=== PATIENT | male | born 1965 | race Caucasian/White ===

== ENCOUNTER → 2016-10-31 | Outpatient (CLI) | payer BC ==
[~2016-10-31] MED LIST: GLIPIZIDE XL2.5 MG PO; METFORMIN HCL500 M1 PO; OMEPRAZOLE40 M1 PO; PHENERGAN25 M1 PO
--- NOTE | ~2016-10-31 | CR63 ---
[facility] A Service of [facility] & [facility] RADIOLOGY TEXT RESULTS PATIENT: BRAD ARMENDARIZ LOCATION: [facility] : 61 UNIT #: [id number] AGE: [address]: Allie Wu MD SEX: M ORDER DR: [id number] [facility] [address]. [place], [place] [address] [id number] O MR#: [id number] Acc #: [id number] NAME: BRAD ARMENDARIZ : 1965 SEX: M STUDY DATE/TIME: 10/31/2016 12:30 UNIT: [facility] ROOM: STUDY DESCRIPTION: CR Chest 2 View Attending Physician: Allie Wu M.D. Referring Physician: Allie Wu M.D. Ordering Physician: Allie Wu M.D. Primary Care Physician: Allie Wu M.D. MEDICAL IMAGING REPORT This report is preliminary unless electronic signature is present EXAM Two-view chest 10/31/2016 HISTORY 51-year-old male with shortness of breath and unexplained weight loss since May 2016. COMPARISON STUDIES None. FINDINGS 2 views of the chest demonstrate clear lungs. No pleural effusion or pneumothorax. Heart size and mediastinum are normal. Pulmonary vasculature normal. IMPRESSION No acute cardiopulmonary findings. Dictated by... Lorne Gonzaelz M.D. THIS IS AN ELECTRONICALLY VERIFIED REPORT Lorne Gonzalez M.D. at 11/01/2016 1:51 PM PREM/saige TD: 10/31/2016 18:28 JOB #: [id number] MEDICAL IMAGING REPORT Page 1 of 1 COPY
== END | disposition home or self-care (01) ==
LOC: CRAD 11:51
DX: R63.4 Abnormal weight loss (principal)
CPT/HCPCS: 71020

== ENCOUNTER → 2016-11-06 | Outpatient (CLI) | payer BC ==
--- NOTE | ~2016-11-06 | CT2 ---
[facility] A Service of [facility] & [facility] RADIOLOGY TEXT RESULTS PATIENT: BRAD ARMENDARIZ [facility] : 61 UNIT #: [id number] AGE: [address]: Allie Wu MD SEX: M ORDER DR: [id number] [facility] [address]. [place], [place] [address] [id number] O MR#: [id number] Acc #: [id number] NAME: BRAD ARMENDARIZ : 1965 SEX: M STUDY DATE/TIME: 11/06/2016 14:20 [facility] ROOM: STUDY DESCRIPTION: CT Abd and Pelv W Cont Attending Physician: Allie Wu M.D. Referring Physician: Allie Wu M.D. Ordering Physician: Allie Wu M.D. Primary Care Physician: Allie Wu M.D. MEDICAL IMAGING REPORT This report is preliminary unless electronic signature is present EXAM CT of the abdomen and pelvis with contrast INDICATION Vomiting off and on for 6 months as well as 50 pounds weight loss over [address] images were obtained from the dome of the diaphragm through the symphysis pubis following administration of oral and intravenous contrast material. This CT exam was performed with one or more of the following radiation dose reduction techniques: automatic control, adjustment of mA and/or kV according to patient size, and iterative reconstruction. FINDINGS Images through the lung bases are clear. This patient has massive distension of the stomach. No oral contrast material has passed into the bowel, findings are characteristic of gastric outlet obstruction. Exact etiology is uncertain. The possibility that there is a mass lesion involving the duodenum is not excluded. Patient does have dilatation of the common bile duct measuring up to 7 mm although there is no pancreatic ductal dilatation. Inspissated material is identified within the duodenum and extending up into the common bile duct and patient is noted to have pneumobilia. Some of the appearance may be related to duodenal diverticulum, but I think certainly the appearance is worrisome again for underlying mass lesion given degree of dilatation, adrenal glands appear unremarkable as is the spleen, pancreas is within normal limits, while patient has pneumobilia. No lesions are identified within the liver itself, other than some focal fatty infiltration noted at the falciform ligament. I do not see any adenopathy within the abdomen. Prostate gland and urinary bladder appear normal. There is no evidence of mechanical bowel obstruction although again patient does have a gastric STS. [facility] A Service of [facility] RADIOLOGY TEXT RESULTS PATIENT: BRAD ARMENDARIZ LOCATION: [facility] : 61 UNIT #: [id number] AGE: [address]: Allie Wu MD SEX: M ORDER DR: outlet obstruction. I do not see any free fluid or adenopathy within the abdomen. Review of bony windows does not demonstrate any aggressive osseous abnormalities. IMPRESSION 1. Massive distension of the patient's stomach. No oral contrast material has passed from the stomach into the small bowel. Findings are characteristic of significant gastric outlet obstruction. Point of obstruction is favored to be just distal to the pylorus. This area does appear thick-walled with associated periduodenal soft tissue stranding, and I think given degree of obstruction, as well as apparent luminal narrowing, the findings are worrisome for malignancy. Inflammation would also be in the differential. There is potentially also a duodenal diverticulum within this area which contains fluid and debris. Additional debris is seen tracking up through the patient's dilated common bile duct and into the biliary tree. Pneumobilia is noted. Given degree of obstruction and gastric dilatation patient is certainly at risk for aspiration. I would suggest a nasogastric decompression as well as GI consultation for consideration for endoscopy. These findings were relayed to Dr. Wu at the time of this dictation. Please see the body of the report for any other additional incidental findings. STAT * RESULT Dictated by... Rhea Jones M.D. THIS IS AN ELECTRONICALLY VERIFIED REPORT Rhea Jones M.D. at 11/08/2016 2:41 PM AFF/rnr TD: 11/07/2016 14:46 JOB #: [id number] MEDICAL IMAGING REPORT Page 1 of 1 COPY
[2016-11-06 18:06] LABS: POC - CREATININE 0.64 mg/dL (0.64-1.27); POC - GFR >60.0 mL/min (>60)
== END | disposition home or self-care (01) ==
LOC: CCAT 13:10
PROVIDERS: Internal Medicine
DX: R11.2 Nausea with vomiting, unspecified (principal); R63.4 Abnormal weight loss; K31.89 Other diseases of stomach and duodenum; K83.8 Other specified diseases of biliary tract
CPT/HCPCS: 74177; 82565; Q9967

== ENCOUNTER 2016-11-07 16:21 | Inpatient (IN) | payer BC ==
[~2016-11-07] VITALS: Ht 167.6 cm; Wt 53.6 kg
--- NOTE | ~2016-11-07 | CO ---
Unit #: [id number] #: [id number] Patient: BRAD ARMENDARIZ [id number] [address] [address] [id number] I MR#: [id number] NAME: BRAD ARMENDARIZ ROOM: 316 Age: 51 Sex: M Admission Date: 11/07/2016 : 1965 Attending Physician: Reji Kilpatrick M.D. Primary Care Physician: Allie Wu M.D. Consultation Date: 11/08/2016 CONSULTATION REPORT REFERRING PHYSICIAN Dr. Hidalgo. REASON FOR CONSULTATION Possible gastric outlet obstruction. HISTORY OF PRESENTING ILLNESS 51-year-old gentleman who had been having significant nausea, vomiting, unable to eat food and always vomits after food since May. Has lost about 40 pounds. Mild epigastric pain. No bowel changes, no hematemesis or melena or bright red blood in the stool. PAST HISTORY Significant for diabetes mellitus diagnosed a month ago. Otherwise, has been healthy. SOCIAL HISTORY Denies alcohol or smoking or drug abuse. MEDICATIONS Medications at home include: 1. Glipizide. 2. Metformin. 3. Omeprazole. 4. Phenergan. FAMILY HISTORY Noncontributory. REVIEW OF SYSTEMS A complete 10-point review of systems was done which is unremarkable other than as mentioned above. PHYSICAL EXAMINATION VITAL SIGNS: Stable, afebrile. Temperature 98.8, pulse 108, respiration 18, blood pressure of 130/69. HEENT: Pupils equal and reactive. Sclerae anicteric. Oral mucosa moist. NECK: No JVD, no lymphadenopathy. CHEST: Clear to auscultation bilaterally. CARDIOVASCULAR SYSTEM: Regular rate and rhythm. No murmurs. ABDOMEN: Mildly tender in the epigastric area, otherwise unremarkable. No rebound or guarding, no organomegaly or ascites. EXTREMITIES: Without clubbing, cyanosis or edema. NEUROLOGICALLY: Intact. Unit #: [id number] #: [id number] Patient: BRAD ARMENDARIZ SKIN: Warm and dry. DIAGNOSTIC STUDIES LABORATORY: Labs - sodium 132. LFTs normal. BUN and creatinine normal. White count at 17,000, hemoglobin at 13.7, platelet count of 260. IMAGING: CT scan shows gastric dilation. No contrast moving into the small intestine, possibly gastric outlet obstruction, and common bile duct dilation. ASSESSMENT AND PLAN Patient's symptoms and findings of CT are suggestive of gastric outlet obstruction. Duodenal pancreatic head or ampullary masses have to be in the differential. Will need an upper endoscopy for decompression of the diagnosis. Risks and benefits discussed. Patient is agreeable. Will keep him NPO and plan on doing upper endoscopy. Thank you, Dr. Hidalgo, for this interesting consult. Will follow along. Dictated by... Favian Brooks M.D. MARELY/violette TD: 11/09/2016 08:19 JOB #: [id number] CONSULTATION REPORT Page 1 of 1 X Favian Brooks MD X CONSULTATION REPORT
--- NOTE | ~2016-11-07 | OR ---
Unit #: [id number] #: [id number] Patient: BRAD ARMENDARIZ [id number] [address] [place], [place] [address] [id number] I MR#: [id number] NAME: BRAD ARMENDARIZ ROOM: [facility] Date of Procedure: 11/08/2016 Admission Date: 11/07/2016 Surgeon: Favian Brooks M.D. : 1965 Attending Physician: Reji Kilpatrick M.D. Referring Physician: Allie Wu M.D. Primary Care Physician: Allie Wu M.D. OPERATIVE REPORT PROCEDURES PERFORMED 1. Esophagogastroduodenoscopy with biopsy. 2. Esophagogastroduodenoscopy with nasojejunal tube placement. INDICATIONS FOR PROCEDURE The patient with persistent nausea, vomiting, weight loss. CT scan suggests gastric outlet obstruction. Undergoing evaluation with upper endoscopy. MEDICATIONS Monitored anesthesia. POSTOPERATIVE FINDINGS 1. Normal esophagus. 2. Retained food in the stomach. Otherwise, normal gastric mucosa. 3. Circumferential mass with ulceration in the duodenal bulb. It was difficult to negotiate it, however, I was able to get past into the descending duodenum. 4. Multiple biopsies taken from the mass. 5. Using a nasojejunal scope, a tube was placed into the jejunum. PLAN We will wait on the biopsy results. Further recommendations to follow. We will start tube feeding with a jejunal port. DESCRIPTION OF PROCEDURE The patient was explained of the procedure, risks, and benefits along with risks and benefits of anesthesia. She was brought to the endoscopy room. General anesthesia was given. Scope was then passed down the mouth and esophagus, stomach, duodenal bulb. Duodenal bulb was nearly obstructed. After some maneuvering, I was able to go past this. Biopsies taken from the duodenal bulb mass. Scope was then gently pulled out. Lot of retained food in the stomach. Would not be able to suction it through the scope. Gently, the scope was pulled out. At this point, we used a nasojejunal scope, which was passed down the right nostril into the esophagus, stomach, duodenum, and distal duodenum. A wire was put through the scope and pulled out gently. Nasojejunal feeding tube was just placed over the wire and secured at the nose with the tape. She tolerated it well. No major complications were seen. Unit #: [id number] #: [id number] Patient: BRAD ARMENDARIZ Dictated by... Chrissy Frank/elaine TD: 11/09/2016 07:28 JOB #: [id number] OPERATIVE REPORT Page 1 of 1 X Favian Brooks MD X PROCEDURE OPERATIVE NOTE
--- NOTE | ~2016-11-07 | CR7 ---
[facility] A Service of [facility] & [facility] RADIOLOGY TEXT RESULTS PATIENT: BRAD ARMENDARIZ LOCATION: [facility] 316-01 : 61 UNIT #: [id number] AGE: [address]: Reji Kilpatrick MD SEX: M ORDER DR: [id number] [address] [facility]. [place], [place] [address] [id number] I MR#: [id number] Acc #: [id number] NAME: BRAD ARMENDARIZ : 1965 SEX: M STUDY DATE/TIME: 11/08/2016 11:49 UNIT: [address] ROOM: [facility] STUDY DESCRIPTION: CR Abdomen Single AP View Attending Physician: Reji Kilpatrick M.D. Referring Physician: Allie Wu M.D. Ordering Physician: Favian Brooks M.D. Primary Care Physician: Allie Wu M.D. MEDICAL IMAGING REPORT This report is preliminary unless electronic signature is present EXAM Supine radiograph of the abdomen. HISTORY Nasojejunal tube placement. TECHNIQUE Supine radiograph of the abdomen. COMPARISON Compared to CT examination, 11/06/2016. FINDINGS There is an enteric tube, which terminates in the distal stomach. Approximately 74 cm of the tube is within the stomach. It forms a complete loop within the stomach. It does not extend into the small bowel. There is moderate to marked air distension of the stomach. There is mild air distension throughout the small bowel. Air and stool seen throughout colon. There is no pathologic small bowel or colonic dilatation. There is evidence of pneumobilia. No free air. Some patchy densities at the left lung base probably atelectatic in nature. No dense airspace disease. Bony structures show no acute abnormality. Visualized heart appears normal in size. Dictated by... Santos Plummer M.D. THIS IS AN ELECTRONICALLY VERIFIED REPORT Santos Plummer M.D. at 11/10/2016 10:01 PM SHEREEN/amelie [facility] A Service of [facility] & [facility] RADIOLOGY TEXT RESULTS PATIENT: BRAD ARMENDARIZ LOCATION: [facility] 316-01 : [birth year] UNIT #: [id number] AGE: [address]: Reji Kilpatrick MD SEX: M ORDER DR: TD: 11/08/2016 15:04 JOB #: [id number] MEDICAL IMAGING REPORT Page 1 of 1 COPY
--- NOTE | ~2016-11-07 | CR72 ---
[facility] A Service of [facility] & [facility] RADIOLOGY TEXT RESULTS PATIENT: BRAD ARMENDARIZ LOCATION: [facility] 316-01 : 61 UNIT #: [id number] AGE: [address]: Reji Kilpatrick MD SEX: M ORDER DR: [id number] [facility] [address] [facility]. [place], [place] [address] [id number] I MR#: [id number] Acc #: [id number] NAME: BRAD ARMENDARIZ : 1965 SEX: M STUDY DATE/TIME: 11/08/2016 6:31 UNIT: [address] ROOM: [facility] STUDY DESCRIPTION: CR Chest Single View Portable Attending Physician: Reji Kilpatrick M.D. Referring Physician: Allie Wu M.D. Ordering Physician: Nury Zaidi M.D. Primary Care Physician: Allie Wu M.D. MEDICAL IMAGING REPORT This report is preliminary unless electronic signature is present EXAM Frontal chest 11/08/2016 INDICATION 50 pound weight loss. Nausea. Shortness of air since May of this year. Diabetes. TECHNIQUE Frontal chest was performed and compared with 10/31/2016. FINDINGS Enteric tube present and the tip is at the level of the gastric pylorus. Cardiac silhouette unremarkable. Vascularity normal. There is no effusion, dense consolidation or pneumothorax. Tiny calcified granulomas are present. IMPRESSION 1. Enteric tube tip is at the level of the gastric pylorus. Calcified granulomatous changes. There may be some minimal atelectasis/scar in the mid and lower lung zone on the left, unchanged. Dictated by... Reymundo Hinojosa M.D. THIS IS AN ELECTRONICALLY VERIFIED REPORT Reymundo Hinojosa M.D. at 11/08/2016 6:02 PM Sarah TD: 11/08/2016 11:32 JOB #: [id number] MEDICAL IMAGING REPORT Page 1 of 1 COPY
--- NOTE | ~2016-11-07 | A ---
[facility] Nutrition Therapy DATE: 11/08/16 Patient: BRAD ARMENDARIZ Physician: LISA Address: [address] [place] [address] Room/Bed: [address] [place] [address], Zip: [place] [address] Admit Date: 11/07/16 Date of : 61 Height: 5 6 Weight: 115 52.2 NUTRITIONAL ASSESSMENT: REASON: Consult for enteral nutrition recommendations Admitting dx: Pt is a 51 y/o male admitted with a gastric obstruction PMH: DM, cataracts Anthropometrics: HT:66" WT:115# BMI:18.6 IBW:142# %IBW:81% UBW:150-160# ~26% weight loss in 6 months (severe) Labs: Gluc:102-188 BUN:7 Alb:3.4 Meds: novoLOG, Zofran, NaCl I/O & Bowel function: BM 11/06- light brown thick drainage Skin Integrity: L leg abrasion Estimated Nutrition Needs: 8285-7232 kcals/day (25-30 kcals/kg IBW) 78-98 g protein/day (1.2-1.5 g/kg IBW) Fluids consistent with kcal needs or per MD. Assessment: Chart reviwed, events noted. RD consulted for enteral nutrition recommendations. Flipping Machine Operator was able to speak to pt at bedside. Pt has an NJ tube placed and is receiving enteral nutrition support of Jevity 1.2 @ 35 ml/hr. Nutrition was started this afternoon. Pt reports losing ~26% of his body weight in the past 6 months 2' a gastric obstruction (~40# weight loss). Pt seemed in good spirits to begin nutrition support and had no questions at this time. RD to follow-up per protocol. Dx: Inadequate oral intake r/t current clinical condition, gastric obstruction, difficulty swallowing AEB 40# weight loss, 18.6 BMI. Intervention: See RD recs below. Monitoring, Evaluation and Goals: 1. EN consistent with estimated needs (tolerate at goal rate). 2. Lytes WNL. 3. Promote regular BM's. Recommendations: [facility] Nutrition Therapy DATE: 11/08/16 Patient: BRAD ARMENDARIZ Physician: LISA Address: [address] [place] [address] Room/Bed: [address] [place] [address], Zip: [place] [address] Admit Date: 11/07/16 Date of : [birth year] Height: 5 6 Weight: 115 52.2 1. Recommend to obtain updated A1c to better assess DM management 2. If blood sugars remain stable, initiate enteral nutrition support of Jevity 1.5 @ 20 ml/hr and increase by 10 ml/hr q 4 hours until a goal rate of 50 ml/hr is reached, to provide 1200 ml, 1800 kcals, 77 g protein, and 912 ml water. Once at goal rate add 220 ml free water flushes QID and hold liquid fluids, or per MD. 3. If pt's blood sugars are elevated, switch to Glucerna 1.5 @ 20 ml/hr and increase by 10 ml/hr q 4 hours until a goal rate of 45 ml/hr is reached, to provide 1080 ml, 1620 kcals, 89 g protein, and 821 ml water. Once at goal rate add 250 ml free water flushes QID and hold liquid fluids, or per MD. 4. Once medically feasible, advance to PO diet per ASSEMBLER MOLDED FRAMES with CCD restriction. RD will f/u per protocol is moderately compromised Respectfully, Debby Henley, Safety Investigator Suri Gibbons, MS, RD, LD [facility] and Nutrition[facility] cc: client file
--- NOTE | ~2016-11-07 | DS ---
Unit #: [id number] #: [id number] Patient: BRAD ARMENDARIZ [id number] [address] [place], [place] [address] [id number] I MR#: [id number] NAME: BRAD ARMENDARIZ ROOM: 316 Age: 51 Sex: M Admission Date: 11/07/2016 : 1965 Discharge Date: 11/11/2016 Attending Physician: Reji Kilpatrick M.D. Referring Physician: Allie Wu M.D. Primary Care Physician: Allie Wu M.D. DISCHARGE SUMMARY FINAL DIAGNOSES 1. Gastric outlet obstruction. 2. Duodenal mass. 3. He had a circumferential mass with ulceration in the duodenal bulb. PRIMARY CARE PHYSICIAN Dr. Wu. SECONDARY DIAGNOSES 1. Diabetes mellitus. 2. Gastric reflux disease. HEEL COVER SPLITTER Dr. Brooks. PROCEDURE He had an EGD with biopsy. HOSPITAL COURSE The patient is a 51-year-old gentleman who presented with nausea and vomiting. He was seen and evaluated through the emergency room. A CT scan did show gastric outlet obstruction. He was seen by GI and ended up with an EGD. EGD showed a circumferential mass with ulceration in duodenal bulb as stated above. Dr. Brooks did obtain biopsies and further recommendations to follow after the biopsy. He was started on the feeding tube feeds initially. However, the tube feed has been removed and is currently able to tolerate a full liquid diet. His diet to be advanced to mechanical soft and per discussion with Dr. Brooks, he will be discharged for outpatient followup for complete workup. The patient had a bowel movement at the time of the dictation. He verbalized understanding as to his followup and he will be discharged in stable condition. MEDICATIONS ON DISCHARGE Include metformin 500 mg p.o. daily, promethazine 25 mg p.o. q.4 hourly p.r.n., omeprazole 40 mg p.o. daily, glipizide XL 2.5 mg p.o. daily when tolerating a regular diet. We will schedule followup with Dr. Brooks in next 1 to 2 weeks and schedule followup with Dr. Wu, his primary care provider in next 3 to 5 days. He will be discharged in stable condition. Time spent in coordinating discharge about 34 minutes. Unit #: [id number] #: [id number] Patient: BRAD ARMENDARIZ Dictated by... Chrissy Canchola/elaine TD: 11/14/2016 02:55 JOB #: [id number] DISCHARGE SUMMARY Page 1 of 1 X Raudel Andino MD X DISCHARGE SUMMARY
--- NOTE | ~2016-11-07 | HP ---
Unit #: [id number] #: [id number] Patient: BRAD ARMENDARIZ [id number] [address] [place], [place] [address] [id number] MR#: [id number] NAME: BRAD ARMENDARIZ ROOM: Age: 51 Sex: M Admission Date: 11/07/2016 : 1965 Attending Physician: Mike Mueller M.D. Referring Physician: Allie Wu M.D. Primary Care Physician: Allie Wu M.D. HISTORY AND PHYSICAL CHIEF COMPLAINT Nausea and vomiting. HISTORY OF PRESENT ILLNESS The patient is a 51-year-old male with a history of diabetes brought to the emergency room from the PCP office with nausea and vomiting concerning for gastric outlet obstruction. The patient stated that patient has been having difficulty swallowing associated with weight loss of 40 pounds since May 2016. The patient also complained of nausea and vomiting associated with food intake within 24 hours. The patient had a CT of the abdomen and pelvis that showed massive distention of the patient's stomach. No oral contrast material has passed from the stomach into the small bowel. Findings are characteristic of significant gastric outlet obstruction. The patient presented to the emergency room for decompression and GI evaluation. Denies any fever. Denies any chills. Denies any chest pain. PAST MEDICAL HISTORY 1. Diabetes. 2. Born with cataracts. PAST SURGICAL HISTORY 1. Cataract surgery. 2. Tonsillectomy. 3. Leg surgery x2. HOME MEDICATIONS 1. Glipizide. 2. Metformin. 3. Omeprazole. 4. Promethazine. ALLERGIES Phenytoin. SOCIAL HISTORY No history of smoking cigarettes, drinking alcohol, or any illicit drug abuse. FAMILY HISTORY Reviewed and none. REVIEW OF SYSTEMS Positive for nausea, vomiting, and weight loss. All other systems have Unit #: [id number] #: [id number] Patient: BRAD ARMENDARIZ been reviewed and are negative other than as mentioned in the HPI. PHYSICAL EXAMINATION GENERAL: Patient is lying in bed not in acute distress. VITAL SIGNS: Temperature 98.8, pulse 108, respiratory rate 18, blood pressure 130/69, saturating 100% at room air. HEENT: Head atraumatic, normocephalic. Pupils equal, round, and reactive to light and accommodation. Extraocular movements are intact. Dry mucous membranes. Cachectic appearance. LUNGS: Decreased air entry at the bases. HEART: Regular rate and rhythm. ABDOMEN: Soft. Decreased bowel sounds. Distended. No abdominal tenderness. EXTREMITIES: No cyanosis. No clubbing. NEUROLOGIC: Alert, awake, and oriented. No gross focal motor deficit. PSYCHIATRIC: Mood and affect are appropriate. DIAGNOSTIC STUDIES LABORATORY: Sodium is 132, potassium 3.5, chloride 91, bicarb 31, glucose 188, BUN 14, creatinine 1, AST 19, ALT 23, alkaline phosphatase 55, albumin 3.4, lipase 24. WBC 17.7, hemoglobin 13.7, hematocrit 39.2, platelets 261,000, and neutrophils 85%. IMAGING: CT of the abdomen and pelvis shows massive distention of the patient's stomach. No oral contrast material has passed from the stomach into the small bowel. Findings are characteristic of significant gastric outlet obstruction. Point of obstruction is favored to be just distal to the pylorus. This area does appear thick-walled with associated pipo-duodenal soft tissue stranding, and I think given degree of obstruction, as well as apparent luminal narrowing, the findings are worrisome for malignancy. There is potentially also a duodenal diverticulum within this area which contains fluid and debris. Additional debris is seen tracking up through the patient's dilated common bile duct and into the biliary tree. Pneumobilia is noted. Given degree of obstruction and gastric dilatation, patient is certainly at risk of aspiration. ASSESSMENT 1. Gastric outlet obstruction. 2. Nausea and vomiting. 3. Hyponatremia. PLAN Admit the patient to inpatient with telemetry. Continue with IV fluids of D5 half normal saline at 75 mL/hour. Continue with ice chips and n.p.o. and will continue with NG tube decompression. Will have a GI consult for the gastric outlet obstruction. Continue with Zofran for supportive care. Check lactic acid for ischemia. Will have LSA and Oncology evaluation during the course of the hospitalization once the biopsy is proven, and further recommendations will follow as more lab results are available. Dictated by Chrissy Ordoñez TD: 11/07/2016 18:30 Unit #: [id number] #: [id number] Patient: BRAD ARMENDARIZ #: [id number] HISTORY AND PHYSICAL Page 1 of 1 X HERMAN ROSS MD X HISTORY AND PHYSICAL
[2016-11-07 17:10] LABS: BASOPHIL% 0.3 % (0-2.5); EOSINOPHIL% 0.2 % (0.0-7.0); HEMATOCRIT 39.2 % (38.0-50.0); HEMOGLOBIN 13.7 gm/dL (13.0-16.0); LYMPHOCYTE# 1.4 X10e3 (1.0-3.5); LYMPHOCYTE% 7.9 % (17.0-45.0); MEAN CELL VOLUME 86.5 FL (83-96); MEAN CORPUSCULAR HEMOGLOBIN 30.3 PG (28-34); MEAN PLATELET VOLUME 7.8 FL (6.5-11.5); MONOCYTE# 0.6 X10e3 (0-1.0); MONOCYTE% 3.3 % (3.0-12.0); NEUTROPHIL# 15.6 X10e3 (1.5-7.1); NEUTROPHIL% 88.3 % (40-75); PLATELET COUNT 261 X10e3 (140-420); RED BLOOD COUNT 4.53 X10e (3.90-5.60); RED CELL DISTRIBUTION WIDTH 12.4 % (11.0-15.5); WHITE BLOOD COUNT 17.7 X10e3 (4.0-10.5)
[2016-11-07 17:15] LABS: DIFF IND YES
[2016-11-07 17:22] LABS: ALBUMIN SERUM 3.4 g/dL (3.5-5.0); BILIRUBIN, DIRECT 0.1 mg/dL (0.0-0.2); BILIRUBIN,INDIRECT 0.4 mg/dL (0.0-0.9); BILIRUBIN,TOTAL 0.5 mg/dL (0.2-2.0); CALCIUM SERUM 8.9 mg/dL (8.4-10.2); GLOM FILT RATE Estimated 85.6 mL/min (>60); POTASSIUM 3.5 mmol/L (3.5-5.1); PROTEIN TOTAL SERUM 6.9 g/dL (6.0-8.3)
[2016-11-07 17:35] LABS: PLATELET ESTIMATE NORMAL (NORMAL); RBC NORMAL YES
[2016-11-07] MEDS ORDERED: METFORMIN HCL500 M1 PO (19:44)
[2016-11-07] MEDS ORDERED: GLIPIZIDE XL2.5 MG PO (19:45)
[2016-11-07] MEDS ORDERED: PHENERGAN25 M1 PO (19:46)
[2016-11-07] MEDS ORDERED: OMEPRAZOLE40 M1 PO (19:47)
[2016-11-08 06:15] LABS: BUN/CREATININE RATIO 11.66; CALCIUM SERUM 8.6 mg/dL (8.4-10.2); CREATININE SERUM 0.6 mg/dL (0.6-1.4); GLOM FILT RATE Estimated 114.8 mL/min (>60); POTASSIUM 3.7 mmol/L (3.5-5.1)
[2016-11-08 06:39] LABS: BASOPHIL% 0.3 % (0-2.5); EOSINOPHIL# 0.1 X10e3 (0-0.7); EOSINOPHIL% 0.8 % (0.0-7.0); HEMATOCRIT 40.1 % (38.0-50.0); HEMOGLOBIN 13.5 gm/dL (13.0-16.0); LYMPHOCYTE# 1.6 X10e3 (1.0-3.5); LYMPHOCYTE% 10.6 % (17.0-45.0); MEAN CELL VOLUME 88.8 FL (83-96); MEAN CORPUSCULAR HGB CONC 33.8 g/dL (30-36); MEAN PLATELET VOLUME 8.4 FL (6.5-11.5); MONOCYTE# 0.8 X10e3 (0-1.0); MONOCYTE% 5.4 % (3.0-12.0); NEUTROPHIL# 12.7 X10e3 (1.5-7.1); NEUTROPHIL% 82.9 % (40-75); PLATELET COUNT 231 X10e3 (140-420); RED BLOOD COUNT 4.51 X10e (3.90-5.60); RED CELL DISTRIBUTION WIDTH 12.7 % (11.0-15.5); WHITE BLOOD COUNT 15.4 X10e3 (4.0-10.5)
[2016-11-08 07:01] LABS: DIFF IND NO
[2016-11-09 04:54] LABS: HEMATOCRIT 37.1 % (38.0-50.0); HEMOGLOBIN 12.6 gm/dL (13.0-16.0); MEAN CELL VOLUME 87.6 FL (83-96); MEAN CORPUSCULAR HEMOGLOBIN 29.8 PG (28-34); MEAN PLATELET VOLUME 8.7 FL (6.5-11.5); RED BLOOD COUNT 4.24 X10e (3.90-5.60); RED CELL DISTRIBUTION WIDTH 12.6 % (11.0-15.5); WHITE BLOOD COUNT 11.5 X10e3 (4.0-10.5)
[2016-11-09 07:15] LABS: ALBUMIN SERUM 2.6 g/dL (3.5-5.0); BILIRUBIN,TOTAL 0.6 mg/dL (0.2-2.0); BUN/CREATININE RATIO 8.57; CALCIUM SERUM 8.4 mg/dL (8.4-10.2); CREATININE SERUM 0.7 mg/dL (0.6-1.4); GLOM FILT RATE Estimated 107.8 mL/min (>60); MAGNESIUM 1.7 mg/dL (1.6-3.0); PHOSPHOROUS 3.5 mg/dL (2.5-4.6); POTASSIUM 3.1 mmol/L (3.5-5.1); PROTEIN TOTAL SERUM 5.5 g/dL (6.0-8.3)
[2016-11-10 05:23] LABS: HEMATOCRIT 38.1 % (38.0-50.0); HEMOGLOBIN 13.2 gm/dL (13.0-16.0); MEAN CELL VOLUME 86.8 FL (83-96); MEAN CORPUSCULAR HEMOGLOBIN 30.1 PG (28-34); MEAN CORPUSCULAR HGB CONC 34.6 g/dL (30-36); MEAN PLATELET VOLUME 7.4 FL (6.5-11.5); RED BLOOD COUNT 4.38 X10e (3.90-5.60); RED CELL DISTRIBUTION WIDTH 12.5 % (11.0-15.5); WHITE BLOOD COUNT 7.7 X10e3 (4.0-10.5)
[2016-11-10 05:42] LABS: BUN/CREATININE RATIO 11.66; CALCIUM SERUM 8.5 mg/dL (8.4-10.2); CREATININE SERUM 0.6 mg/dL (0.6-1.4); GLOM FILT RATE Estimated 114.8 mL/min (>60); MAGNESIUM 1.9 mg/dL (1.6-3.0)
[2016-11-11 05:58] LABS: HEMATOCRIT 39.1 % (38.0-50.0); HEMOGLOBIN 13.4 gm/dL (13.0-16.0); MEAN CELL VOLUME 87.3 FL (83-96); MEAN CORPUSCULAR HEMOGLOBIN 29.9 PG (28-34); MEAN CORPUSCULAR HGB CONC 34.2 g/dL (30-36); MEAN PLATELET VOLUME 7.5 FL (6.5-11.5); RED BLOOD COUNT 4.48 X10e (3.90-5.60); RED CELL DISTRIBUTION WIDTH 12.5 % (11.0-15.5); WHITE BLOOD COUNT 7.5 X10e3 (4.0-10.5)
[2016-11-11 06:51] LABS: ALBUMIN SERUM 2.6 g/dL (3.5-5.0); BILIRUBIN,TOTAL 0.4 mg/dL (0.2-2.0); BUN/CREATININE RATIO 8.57; CALCIUM SERUM 8.4 mg/dL (8.4-10.2); CREATININE SERUM 0.7 mg/dL (0.6-1.4); GLOM FILT RATE Estimated 107.8 mL/min (>60); MAGNESIUM 1.7 mg/dL (1.6-3.0); POTASSIUM 3.6 mmol/L (3.5-5.1); PROTEIN TOTAL SERUM 6.1 g/dL (6.0-8.3)
== END 2016-11-11 12:35 | disposition home or self-care (01) | DRG 380 ==
LOC: CED 16:21 → CEDOF 17:46 → CED 20:13 → CEDOF 11-08 00:11 → C3A PCU 11-08 00:11
PROVIDERS: Emergency Medicine; Internal Medicine
PROC: 0DHA3UZ Insertion of Feeding Device into Jejunum, Percutaneous Approach (ICD-10-PCS; principal; 2016-11-08 10:22)
PROC: 0DB98ZX Excision of Duodenum, Via Natural or Artificial Opening Endoscopic, Diagnostic (ICD-10-PCS; 2016-11-08 10:22)
DX: K31.1 Adult hypertrophic pyloric stenosis (principal); E43 Unspecified severe protein-calorie malnutrition; E11.8 Type 2 diabetes mellitus with unspecified complications; E87.1 Hypo-osmolality and hyponatremia; Z68.1 Body mass index [BMI] 19.9 or less, adult; Z79.84 Long term (current) use of oral hypoglycemic drugs; Z98.49 Cataract extraction status, unspecified eye; R19.00 Intra-abdominal and pelvic swelling, mass and lump, unspecified site; K21.9 Gastro-esophageal reflux disease without esophagitis
CPT/HCPCS: 36415; 71010; 74000; 74177; 80048; 80053; 80076; 82565; 82947; 83036; 83605; 83690; 83735; 84100; 84132; 85025; 85027; 88305; 94760; 99285; J0330; J1650; J1815; J2405; J3475; Q9967